=== PATIENT | male | born 1965 | race American Indian/Alaskan Native ===

== ENCOUNTER 2021-05-15 17:12 | Inpatient (IN) | payer SELFPAY ==
--- NOTE | 2021-05-15 21:47 | Event Note ---
ED Screening Note Date of service: 05/15/21 Time: 21:45 ED Screening Note: 56-year-old black male with a past medical history of CHF and CAD status post CABG presents to the emergency department for evaluation of 2-week history of worsening shortness of breath and bilateral lower extremity swelling. He states that he is supposed to be on several medications but has not taken them in "a while" This initial assessment/diagnostic orders/clinical plan/treatment(s) is/are subject to change based on patients health status, clinical progression and re- assessment by fellow clinical providers in the ED. Further treatment and workup at subsequent clinical providers discretion. Patient/guardian urged not to elope from the ED as their condition may be serious if not clinically assessed and managed. Initial orders include: CBC, CMP, BMP, troponin, EKG, and chest x-ray.
--- NOTE | 2021-05-15 22:21 | XRay Report ---
CHEST 2 VIEWS INDICATION / CLINICAL INFORMATION: sob. COMPARISON: 10/22/2010 FINDINGS: SUPPORT DEVICES: Prior sternotomy. HEART / MEDIASTINUM: No significant abnormality. LUNGS / PLEURA: Elevation of the lateral right hemidiaphragm with bandlike scarring/atelectasis of th e right lower lung zone. No definite acute airspace disease. Left lung is clear. No pneumothorax. ADDITIONAL FINDINGS: No significant additional findings. IMPRESSION: 1. Elevation of right hemidiaphragm with bandlike scarring/atelectasis of the right lung base. Left lung is clear. Signer Name: Jose Mantilla MD Signed: 05/15/2021 10:17 PM Workstation Name: [id number]
[2021-05-15 22:23] LABS: Hematocrit 52.1 % (35.5-45.6); Hemoglobin 16.6 gm/dl (11.8-15.2); Mean Corpuscular HGB Conc 32 % (32-34); Mean Corpuscular Volume 97 fl (84-94); Platelet Count 207 K/mm3 (140-440); Red Blood Count 5.39 M/mm3 (3.65-5.03); Red Cell Distribution Width 16.5 % (13.2-15.2)
--- NOTE | 2021-05-15 22:24 | Emergency Department Report ---
ED General Adult HPI - General Chief complaint: Dyspnea/Respdistress Stated complaint: SHORTNESS OF BREATH Time Seen by Provider: 05/15/21 22:12 Source: patient, RN notes reviewed Mode of arrival: Ambulatory Limitations: Physical Limitation - History of Present Illness Initial comments: This is a pleasant and cooperative 56-year-old gentleman, with a past medical history of possible hypertension, congestive heart failure. He does not know his ejection fraction. He is not compliant with medications. He last saw a relay tester 8 years ago. Presents to the ER today with a complaint of painless lower extremity swelling, orthopnea, unintentional lower extremity weight gain. Denies physical pain. Denies travel, surgery, immobilization, DVT/PE risk factors. -: week(s) Location: left, right, lower extremity Consistency: constant Improves with: rest Worsens with: movement - Related Data Allergies Allergy/AdvReac Type Severity Reaction Status Date / Time No Known Allergies Allergy Verified 05/15/21 22:47 ED Review of Systems ROS: Stated complaint: SHORTNESS OF BREATH Other details as noted in HPI Constitutional: malaise. denies: fever Eyes: denies: eye discharge ENT: congestion. denies: epistaxis Respiratory: orthopnea, shortness of breath, SOB with exertion, SOB at rest Cardiovascular: dyspnea on exertion, orthopnea, edema. denies: chest pain Gastrointestinal: denies: abdominal pain, hematemesis, melena, hematochezia Genitourinary: denies: dysuria Musculoskeletal: myalgia Neurological: weakness Hematological/Lymphatic: denies: easy bleeding ED Physical Exam - General Limitations: Physical Limitation General appearance: alert, anxious - Head Head exam: Present: atraumatic, normocephalic - Eye Eye exam: Present: normal appearance, EOMI. Absent: nystagmus - ENT ENT exam: Present: normal exam, normal orophraynx, mucous membranes moist, normal external ear exam - Neck Neck exam: Present: normal inspection, full ROM. Absent: tenderness, meningismus - Respiratory Respiratory exam: Present: respiratory distress. Absent: wheezes, rhonchi, stridor - Cardiovascular Cardiovascular Exam: Present: normal rhythm, tachycardia, normal heart sounds, JVD. Absent: bradycardia, irregular rhythm, systolic murmur, diastolic murmur, rubs, gallop - GI/Abdominal GI/Abdominal exam: Present: soft. Absent: distended, tenderness, guarding, rebound, rigid, pulsatile mass - Rectal Rectal exam: Present: deferred - Extremities Exam Extremities exam: Present: normal inspection, full ROM, pedal edema (3+ edema in the bilateral lower extremity), other (2+ pulses noted in the bilateral upper and lower extremities. There is no palpable cord. negative Homans sign. Muscular compartments are soft. The pelvis is stable.). Absent: calf tenderness - Back Exam Back exam: Present: normal inspection. Absent: tenderness, CVA tenderness (R), paraspinal tenderness, vertebral tenderness - Neurological Exam Neurological exam: Present: alert, oriented X3, other (No facial droop. Tongue midline. Extraocular movements intact bilaterally. Facial sensation intact to light touch in V1, V2, V3 distribution bilaterally. 5 and a 5 strength in 4 extremities. Sensation intact to light touch in 4 extremities.). Absent: motor sensory deficit - Psychiatric Psychiatric exam: Present: anxious - Skin Skin exam: Present: warm, dry, intact, normal color. Absent: rash ED Course Vital Signs 05/15/21 19:24 Temperature 98.2 F Pulse Rate 118 H Respiratory 18 Rate Blood Pressure 157/95 O2 Sat by Pulse 99 Oximetry - Reevaluation(s) Reevaluation #1: 05/15/21 23:30 Differential diagnosis, including but not limited to: Congestive heart failure, pneumonia Assessment and plan: 56-year-old gentleman, with lower extremity edema, orthopnea, JVD, unintentional weight gain, suspicious for decompensated congestive heart failure. He denies DVT/PE risk factors and I find to be low risk by Wells criteria for pulmonary embolism and DVT. Laboratory studies including elevated proBNP are reviewed and appreciated. Aspirin and Lasix ordered. Have recommended admission to the medical service. Patient is agreeable to this plan of care. Lower extremity DVT study ordered. Hospital physician, Dr. Orly Weir to admit to IMS We will defer to inpatient team to follow-up on DVT study, but as per verbal report from technologist, DVT studies preliminarily negative Medical decision makin-year-old gentleman with decompensated congestive heart failure, requires admission to the medical service for medical optimization. Patient is agreeable to this plan of care. ED Medical Decision Making - Lab Data Result diagrams: 05/15/21 21:55 05/15/21 21:55 Vital Signs 05/15/21 19:24 Temperature 98.2 F Pulse Rate 118 H Respiratory 18 Rate Blood Pressure 157/95 O2 Sat by Pulse 99 Oximetry Lab Results 05/15/21 05/15/21 05/15/21 Range/Units 21:55 21:55 21:55 WBC 6.2 (4.5-11.0) K/mm3 RBC 5.39 H (3.65-5.03) M/mm3 Hgb 16.6 H (11.8-15.2) gm/dl Hct 52.1 H (35.5-45.6) % MCV 97 H (84-94) fl MCH 31 (28-32) pg MCHC 32 (32-34) % RDW 16.5 H (13.2-15.2) % Plt Count 207 (140-440) K/mm3 Lymph % (Auto) Gym Teacher [place] % (Auto) Gym Teacher Eos % (Auto) Gym Teacher Baso % (Auto) Gym Teacher Lymph # (Auto) Gym Teacher [place] # (Auto) Gym Teacher Eos # (Auto) Gym Teacher Baso # (Auto) Gym Teacher Seg Neutrophils % Gym Teacher Seg Neutrophils # Gym Teacher Sodium 142 (137-145) mmol/L Potassium 4.0 (3.6-5.0) mmol/L Chloride 103.7 (98-107) mmol/L Carbon Dioxide 27 (22-30) mmol/L Anion Gap 15 mmol/L BUN 11 (9-20) mg/dL Creatinine 1.0 (0.8-1.3) mg/dL Estimated GFR > 60 ml/min BUN/Creatinine Ratio 11 % Glucose 263 H (75-100) mg/dL Calcium 9.1 (8.4-10.2) mg/dL Total Bilirubin 1.30 H (0.1-1.2) mg/dL AST 19 (5-40) units/L ALT 21 (7-56) units/L Alkaline Phosphatase 121 (35-129) units/L Troponin T 0.023 (0.00-0.029) ng/mL NT-Pro-B Natriuret Pep 4582 H (0-900) pg/mL Total Protein 7.1 (6.3-8.2) g/dL Albumin 3.6 L (3.9-5) g/dL Albumin/Globulin Ratio 1.0 % - EKG Data -: EKG Interpreted by Mi EKG shows normal: sinus rhythm Rate: tachycardia - EKG Data When compared to previous EKG there are: previous EKG unavailable 05/15/21 23:30 The EKG is interpreted at 21: 56 Sinus rhythm, tachycardia, rate 105 bpm. Normal axis, normal P wave axis, Q waves noted in the inferior leads, there is atrial enlargement, and left ventricular hypertrophy. This is an abnormal EKG. This is not a STEMI. There is no prior for comparison - Radiology Data Radiology results: pending, report reviewed, image reviewed CHEST 2 VIEWS INDICATION / CLINICAL INFORMATION: sob. COMPARISON: 10/22/2010 FINDINGS: SUPPORT DEVICES: Prior sternotomy. HEART / MEDIASTINUM: No significant abnormality. LUNGS / PLEURA: Elevation of the lateral right hemidiaphragm with bandlike scarring/atelectasis of the right lower lung zone. No definite acute airspace disease. Left lung is clear. No pneumothorax. ADDITIONAL FINDINGS: No significant additional findings. IMPRESSION: 1. Elevation of right hemidiaphragm with bandlike scarring/atelectasis of the right lung base. Left lung is clear. Signer Name: Jose Mantilla MD Signed: 05/15/2021 9:17 PM Workstation Name: [id number] Critical care attestation.: If time is entered above; I have spent that time in minutes in the direct care of this critically ill patient, excluding procedure time. ED Disposition Clinical Impression: Acute congestive heart failure, Lower extremity edema Disposition: ADMITTED INPATIENT Is pt being admited?: Yes Does the pt Need Aspirin: No Condition: Good Referrals: SOLE BEAVER MD [Primary Care Provider] - 3-5 Days
[2021-05-15 22:28] LABS: Alanine Aminotransferase 21 units/L (7-56); Albumin 3.6 g/dL (3.9-5); BUN/Creatinine Ratio 11; Blood Urea Nitrogen 11 mg/dL (9-20); Calcium 9.1 mg/dL (8.4-10.2); Hemolysis Index 8
[2021-05-15] MEDS ORDERED: FUROSEMIDE 40 MG/4 ML INJ IV ONE (22:42)
[2021-05-15] MEDS ORDERED: ASPIRIN 81 MG TAB CHEW PO ONE (22:42)
[2021-05-16] MEDS ORDERED: MORPHINE 4 MG/1 ML INJ IV PRN (00:11)
[2021-05-16] MEDS ORDERED: MORPHINE 2 MG/1 ML INJ IV PRN (00:11)
[2021-05-16] MEDS ORDERED: ONDANSETRON 4 MG/2 ML INJ IV PRN (00:11)
[2021-05-16] MEDS ORDERED: MAGNESIUM HYDROXIDE (MOM) ORAL LIQD UDC PO PRN (00:11)
[2021-05-16] MEDS ORDERED: ACETAMINOPHEN 325 MG TAB PO PRN (00:11)
--- NOTE | 2021-05-16 00:16 | Vascular Lab Report ---
DUPLEX DOPPLER LOWER EXTREMITY VEINS, BILATERAL INDICATION / CLINICAL INFORMATION: b/l lower ext swelling. TECHNIQUE: Duplex doppler imaging was performed through the veins of both lower extremities using breanna ous compression and other maneuvers. COMPARISON: None available. FINDINGS: RIGHT COMMON FEMORAL VEIN: Negative. RIGHT FEMORAL VEIN: Negative. RIGHT POPLITEAL VEIN: Negative. RIGHT CALF VEINS: Negative. LEFT COMMON FEMORAL VEIN: Negative. LEFT FEMORAL VEIN: Negative. LEFT POPLITEAL VEIN: Negative. LEFT CALF VEINS: Negative. ADDITIONAL FINDINGS: None. IMPRESSION: 1. No sonographic evidence for DVT in either lower extremity. Signer Name: Imtiaz Delgado II, MD Signed: 05/16/2021 12:12 AM Workstation Name: [id number]
--- NOTE | 2021-05-16 00:33 | History and Physical Report ---
History of Present Illness Date of examination: 05/16/21 Date of admission: 05/16/2021 Chief complaint: Shortness of Breath Lower extremity Swelling History of present illness: 56-year-old -[place]ian male with known history of hypertension and CHF presenting to the emergency room today complaining of shortness of breath and progressive swelling of his lower extremities over the past few days. Patient denies any chest pain, no headache or dizziness and no diaphoresis. He denies not being compliant with his medications lately because he ran out of of refills. He has not followed up with any anti air warfare operations officer in about 8 years. He denies any lower extremity pain. No recent travel or sick contacts. Work-up in the emergency room today, lab was significant for BNP of 4582, blood glucose of 263, hemoglobin of 16.6 and hematocrit of 52.1. Ultrasound of the lower extremities were negative for DVT. Past History Past Medical History: heart failure Past Surgical History: No surgical history Social history: no significant social history Family history: no significant family history Medications and Allergies Allergies Allergy/AdvReac Type Severity Reaction Status Date / Time No Known Allergies Allergy Verified 05/15/21 22:47 Home Medications Medication Instructions Recorded Confirmed Last Taken Type No Known Home Medications [No 05/16/21 05/16/21 Unknown History Reported Home Medications] Active Meds: Active Medications Acetaminophen (Acetaminophen 325 Mg Tab) 650 mg PO Q4H PRN PRN Reason: Pain MILD(1-3)/Fever >100.5/REBOLLEDO Furosemide (Furosemide 40 Mg/4 Ml Inj) 40 mg IV BID@0600,1800 [facility] Heparin Sodium (Porcine) (Heparin 5,000 Unit/1 Ml Vial) 5,000 unit SUB-Q Q8HR [facility] Magnesium Hydroxide (Magnesium Hydroxide (Mom) Oral Liqd Udc) 30 ml PO Q4H PRN PRN Reason: Constipation Morphine Sulfate (Morphine 2 Mg/1 Ml Inj) 2 mg IV Q4H PRN PRN Reason: Pain, Moderate (4-6) Morphine Sulfate (Morphine 4 Mg/1 Ml Inj) 4 mg IV Q4H PRN PRN Reason: Pain , Severe (7-10) Ondansetron HCl (Ondansetron 4 Mg/2 Ml Inj) 4 mg IV Q8H PRN PRN Reason: Nausea And Vomiting Sodium Chloride (Sodium Chloride 0.9% 10 Ml Flush Syringe) 10 ml IV BID ULISSES Sodium Chloride (Sodium Chloride 0.9% 10 Ml Flush Syringe) 10 ml IV PRN PRN PRN Reason: LINE FLUSH Review of Systems Constitutional: no fever, no chills Ears, nose, mouth and throat: no nasal congestion, no sore throat Cardiovascular: no chest pain, no orthopnea, no palpitations Respiratory: no cough, no shortness of breath Gastrointestinal: no abdominal pain, no nausea, no vomiting, no diarrhea Musculoskeletal: no neck pain, no low back pain Integumentary: no rash, no pruritis Neurological: no headaches, no confusion Psychiatric: no anxiety, no depression Endocrine: no polyphagia, no polydipsia, no polyuria, no nocturia Exam - Constitutional Vitals: Temp Pulse Resp BP Pulse Ox 98.2 F 118 H 18 157/95 99 05/15/21 19:24 05/15/21 19:24 05/15/21 19:24 05/15/21 19:24 05/15/21 19:24 General appearance: Present: no acute distress, well-nourished - EENT Eyes: Present: PERRL, EOM intact. Absent: scleral icterus ENT: hearing intact, clear oral mucosa, dentition normal - Neck Neck: Present: supple, normal ROM - Respiratory Respiratory effort: normal Respiratory: bilateral: other (Few Crackles in bases) - Cardiovascular Rhythm: regular Heart Sounds: Present: S1 & S2, systolic murmur (Soft systolic murmur). Absent: gallop - Extremities Extremities: no ischemia, pulses intact, pulses symmetrical, normal temperature, Full ROM Extremity abnormal: edema (2+ bilateral lower extremity edema) Peripheral Pulses: within normal limits - Abdominal General gastrointestinal: Present: soft, non-tender, non-distended, normal bowel sounds. Absent: mass - Integumentary Integumentary: Present: clear, warm, dry, normal turgor. Absent: rash - Musculoskeletal Musculoskeletal: strength equal bilaterally - Psychiatric Psychiatric: appropriate mood/affect, intact judgment & insight, memory intact, cooperative - Neurologic Neurologic: CNII-XII intact, no focal deficits, moves all extremities HEART Score - HEART Score Troponin: Troponin T 0.023 ng/mL (0.00-0.029) 05/15/21 21:55 Results - Labs CBC & Chem 7: 05/15/21 21:55 05/15/21 21:55 Labs: Abnormal lab results 05/15/21 05/15/21 05/15/21 Range/Units 21:55 21:55 21:55 RBC 5.39 H (3.65-5.03) M/mm3 Hgb 16.6 H (11.8-15.2) gm/dl Hct 52.1 H (35.5-45.6) % MCV 97 H (84-94) fl RDW 16.5 H (13.2-15.2) % Glucose 263 H (75-100) mg/dL Total Bilirubin 1.30 H (0.1-1.2) mg/dL NT-Pro-B Natriuret Pep 4582 H (0-900) pg/mL Albumin 3.6 L (3.9-5) g/dL Assessment and Plan - Patient Problems (1) Acute congestive heart failure Current Visit: Yes Status: Acute Plan to address problem: Patient admitted and placed on diuretics. We will monitor inputs and outputs and also monitor daily weights. Patient scheduled for echocardiogram. Compliance with medications encouraged. Consult placed to cardiology for evaluation and recommendations. (2) Lower extremity edema Current Visit: Yes Status: Acute Plan to address problem: Possibly secondary to CHF exacerbation. Ultrasound Doppler was negative for DVT. We will continue on diuretics. (3) DVT prophylaxis Current Visit: Yes Status: Acute Plan to address problem: Patient placed on subcutaneous heparin. (4) Full code status Current Visit: Yes Status: Acute Plan to address problem: Patient is full code.
[2021-05-16] MEDS: HEPARIN 5,000 UNIT/1 ML VIAL SUB-Q SCH ×3 (06:07→23:00)
[2021-05-16] MEDS: FUROSEMIDE 40 MG/4 ML INJ IV SCH ×2 (06:07→18:20)
--- NOTE | 2021-05-16 13:25 | Consultation ---
History of Present Illness Consult date: 05/16/21 Consult reason: congestive heart failure History of present illness: The patient is a 56-year-old man with a history of coronary artery disease. He states that he underwent coronary artery bypass surgery 8 years ago at [facility]. Following that, he has not seen a doctor or action finisher in 8 years. He has been noncompliant with any prescribed medications. He presents now with 2 weeks of increasing shortness of breath and lower extremity edema. He also reports orthopnea. In the hospital, he has 2-3+ bilateral lower extremity edema. His chest x-ray showed moderate to severe cardiomegaly with a moderate sized right pleural effusion. He is admitted for management of decompensated congestive heart failure. EKG was a mild sinus tachycardia, Q waves of a possible old inferior myocardial infarction, left ventricular hypertrophy and poor R wave progression. There are no acute ST or T wave changes. Past History Past Medical History: CAD, hypertension Past Surgical History: No surgical history, CABG Social history: no significant social history Family history: no significant family history Medications and Allergies Allergies Allergy/AdvReac Type Severity Reaction Status Date / Time No Known Allergies Allergy Verified 05/15/21 22:47 Home Medications Medication Instructions Recorded Confirmed Last Taken Type No Known Home Medications [No 05/16/21 05/16/21 Unknown History Reported Home Medications] Active Meds: Active Medications Acetaminophen (Acetaminophen 325 Mg Tab) 650 mg PO Q4H PRN PRN Reason: Pain MILD(1-3)/Fever >100.5/REBOLLEDO Furosemide (Furosemide 40 Mg/4 Ml Inj) 40 mg IV BID@0600,1800 [facility] Last Admin: 05/16/21 06:07 Dose: 40 mg Heparin Sodium (Porcine) (Heparin 5,000 Unit/1 Ml Vial) 5,000 unit SUB-Q Q8HR [facility] Last Admin: 05/16/21 06:07 Dose: 5,000 unit Magnesium Hydroxide (Magnesium Hydroxide (Mom) Oral Liqd Udc) 30 ml PO Q4H PRN PRN Reason: Constipation Morphine Sulfate (Morphine 2 Mg/1 Ml Inj) 2 mg IV Q4H PRN PRN Reason: Pain, Moderate (4-6) Morphine Sulfate (Morphine 4 Mg/1 Ml Inj) 4 mg IV Q4H PRN PRN Reason: Pain , Severe (7-10) Ondansetron HCl (Ondansetron 4 Mg/2 Ml Inj) 4 mg IV Q8H PRN PRN Reason: Nausea And Vomiting Sodium Chloride (Sodium Chloride 0.9% 10 Ml Flush Syringe) 10 ml IV BID ULISSES Last Admin: 05/16/21 10:12 Dose: 10 ml Sodium Chloride (Sodium Chloride 0.9% 10 Ml Flush Syringe) 10 ml IV PRN PRN PRN Reason: LINE FLUSH Review of Systems Cardiovascular: orthopnea, edema, shortness of breath, no chest pain, no palpitations, no rapid/irregular heart beat, no syncope, no lightheadedness Physical Examination Vital Signs Temp Pulse Resp BP Pulse Ox 98.2 F 118 H 18 157/95 99 05/15/21 19:24 05/15/21 19:24 05/15/21 19:24 05/15/21 19:24 05/15/21 19:24 General appearance: mild distress HEENT: Positive: PERRL Neck: Positive: neck supple Cardiac: Positive: Reg Rate and Rhythm Lungs: Positive: Decreased Breath Sounds Neuro: Positive: Grossly Intact Abdomen: Positive: Soft Male genitourinary: Positive: deferred Skin: Positive: Clear Extremities: Present: +2 Edema Results 05/15/21 21:55 05/15/21 21:55 Cardiac Enzymes 05/15/21 Range/Units 21:55 AST 19 (5-40) units/L CBC 05/15/21 Range/Units 21:55 WBC 6.2 (4.5-11.0) K/mm3 RBC 5.39 H (3.65-5.03) M/mm3 Hgb 16.6 H (11.8-15.2) gm/dl Hct 52.1 H (35.5-45.6) % Plt Count 207 (140-440) K/mm3 Lymph # (Auto) [employer] Sergeant [place] # (Auto) [employer] Sergeant Eos # (Auto) [employer] Sergeant [place] # (Auto) [employer] Sergeant Comprehensive Metabolic Panel 05/15/21 Range/Units 21:55 Sodium 142 (137-145) mmol/L Potassium 4.0 (3.6-5.0) mmol/L Chloride 103.7 (98-107) mmol/L Carbon Dioxide 27 (22-30) mmol/L BUN 11 (9-20) mg/dL Creatinine 1.0 (0.8-1.3) mg/dL Glucose 263 H (75-100) mg/dL Calcium 9.1 (8.4-10.2) mg/dL AST 19 (5-40) units/L ALT 21 (7-56) units/L Alkaline Phosphatase 121 (35-129) units/L Total Protein 7.1 (6.3-8.2) g/dL Albumin 3.6 L (3.9-5) g/dL EKG interpretations - Telemetry EKG Rhythm: Sinus Tachycardia Assessment and Plan - Patient Problems (1) Acute congestive heart failure Current Visit: Yes Status: Acute Plan to address problem: Patient with a history of coronary artery disease status post remote coronary artery bypass, noncompliant with medical therapy, presents with 2 weeks of progressive fluid overload, presentation consistent with acute congestive heart failure. We will treat aggressively with diuretic therapy, blood pressure management. We will order an echocardiogram for left ventricular function assessment. Further cardiac evaluation and management will depend on clinical course.
--- NOTE | 2021-05-16 14:28 | Electrocardiograph Report ---
[facility] [place] Test Date: 2021-05-15 Test Time: 21:56:37 Pat Name: JARRETT MEZA Department: Room: A478 1 Gender: M Electrical Drafter: NICOLE : 1965 Requested By: LEANA MATUTE Order Number: [id number] Reading MD: Noemy Henderson Measurements Intervals [place] Rate: 105 P: 24 LA: 160 QRS: 30 QRSD: 94 T: -90 QT: 342 QTc: 452 Interpretive Statements Sinus tachycardia Inferior infarct, age indeterminate Nonspecific T abnormalities, lateral leads No previous ECG available for comparison Electronically Signed On 05-16-2021 14:28:00 EDT by Noemy Henderson
--- NOTE | 2021-05-16 16:41 | Event Note ---
Date: 05/16/21 Patient seen and examined This is the second visit after midnight Vitals noted and stable Patient denies any chest pain but complains of exertional shortness of breath 56-year-old -[place] male with a history of coronary artery disease status post bypass presented to the hospital with worsening shortness of breath and chest pain. Continue diuresis IV, ordered 2D echo, consulted cardiology Monitor ins O's, daily weight, monitor BP Continue current management and plan -It took me about 28 minutes to reevaluate and reasses this patient, discussed with RN/CM, review medical documents, lab results, imaging, medication list and placing order.
[2021-05-17 05:32] LABS: Basophils % (Auto) 0.4 % (0.0-1.8); Eosinophils % (Auto) 0.8 % (0.0-4.3); Hematocrit 49.7 % (35.5-45.6); Hemoglobin 16.2 gm/dl (11.8-15.2); Lymphocytes # (Auto) 3.2 K/mm3 (1.2-5.4); Lymphocytes % (Auto) 54.5 % (13.4-35.0); Mean Corpuscular HGB Conc 33 % (32-34); Mean Corpuscular Volume 95 fl (84-94); Monocytes # (Auto) 0.4 K/mm3 (0.0-0.8); Monocytes % (Auto) 6.9 % (0.0-7.3); Platelet Count 197 K/mm3 (140-440); Red Blood Count 5.26 M/mm3 (3.65-5.03); Red Cell Distribution Width 16.2 % (13.2-15.2)
[2021-05-17 05:50] LABS: BUN/Creatinine Ratio 12; Blood Urea Nitrogen 12 mg/dL (9-20); Calcium 8.7 mg/dL (8.4-10.2); Hemolysis Index 218
[2021-05-17] MEDS: HEPARIN 5,000 UNIT/1 ML VIAL SUB-Q SCH ×3 (07:00→21:49)
[2021-05-17] MEDS: FUROSEMIDE 40 MG/4 ML INJ IV SCH ×2 (07:00→17:04)
--- NOTE | 2021-05-17 14:04 | Progress Note ---
Assessment and Plan - Patient Problems (1) Acute congestive heart failure Current Visit: Yes Status: Acute Plan to address problem: Patient with a history of coronary artery disease status post remote coronary artery bypass, noncompliant with medical therapy, presents with 2 weeks of progressive fluid overload, presentation consistent with acute congestive heart failure. He feels better following initial diuretic therapy. Echocardiogram shows a residual, severe cardiomyopathy with left ventricular ejection fraction 20 to 25%. We will continue guideline directed medical therapy, and order a predischarge Lexiscan thallium stress test for further assessment of coronary disease. Subjective Date of service: 05/17/21 Principal diagnosis: Congestive heart failure Interval history: The patient looks and feels better today, no chest pain, shortness of breath has improved following diuretic therapy. Echocardiogram shows a severe ischemic cardiomyopathy with left ventricular ejection fraction 20 to 25%. Objective Vital Signs Temp Pulse Resp BP BP Pulse Ox 05/17/21 11:00 98 F 87 18 143/93 97 05/17/21 07:39 97.2 F L 78 18 143/95 98 05/17/21 03:05 98.0 F 97 H 16 156/102 96 05/16/21 23:53 18 98 05/16/21 23:04 98.2 F 99 H 16 141/100 98 05/16/21 22:00 18 98 05/16/21 19:11 97.6 F 103 H 16 138/97 99 05/16/21 17:11 97.7 F 78 18 149/86 96 05/16/21 14:55 97.8 F 92 H 24 148/94 85 - Physical Examination General: No Apparent Distress HEENT: Positive: PERRL Neck: Positive: neck supple Cardiac: Positive: Reg Rate and Rhythm Lungs: Positive: Decreased Breath Sounds Neuro: Positive: Grossly Intact Abdomen: Positive: Soft Skin: Positive: Clear Extremities: Present: +2 Edema - Labs and Meds CBC 05/17/21 Range/Units 05:10 WBC 5.9 (4.5-11.0) K/mm3 RBC 5.26 H (3.65-5.03) M/mm3 Hgb 16.2 H (11.8-15.2) gm/dl Hct 49.7 H (35.5-45.6) % Plt Count 197 (140-440) K/mm3 Lymph # (Auto) 3.2 (1.2-5.4) K/mm3 [place] # (Auto) 0.4 (0.0-0.8) K/mm3 Eos # (Auto) 0.0 (0.0-0.4) K/mm3 Baso # (Auto) 0.0 (0.0-0.1) K/mm3 Comprehensive Metabolic Panel 05/17/21 Range/Units 05:06 Sodium 138 (137-145) mmol/L Potassium 4.6 (3.6-5.0) mmol/L Chloride 99.1 (98-107) mmol/L Carbon Dioxide 26 (22-30) mmol/L BUN 12 (9-20) mg/dL Creatinine 1.0 (0.8-1.3) mg/dL Glucose 267 H (75-100) mg/dL Calcium 8.7 (8.4-10.2) mg/dL
[2021-05-17] MEDS: SPIRONOLACTONE 25 MG TAB PO SCH (17:04)
[2021-05-17] MEDS: LISINOPRIL 10 MG TAB PO SCH (17:05)
[2021-05-17] MEDS: ASPIRIN EC 81 MG TAB PO SCH (17:05)
[2021-05-17] MEDS: carvediloL 6.25 MG TAB PO SCH ×2 (17:06→21:49)
--- NOTE | 2021-05-17 18:07 | Progress Note ---
Assessment and Plan -- Acute systolic congestive heart failure Patient admitted and placed on diuretics. We will monitor inputs and outputs and also monitor daily weights. 2d Echocardiogram shows a residual, severe cardiomyopathy with left ventricular ejection fraction 20 to 25%. Compliance with medications encouraged. Consult placed to cardiology for evaluation and recommendations. Plan for stress test tomorrow --Coronary artery disease, continue aspirin and statin Cardiology consulted and plan for stress test tomorrow --Hypertension, monitor BP, initiate antihypertensive --Hypomagnesemia, replete --Hyperglycemia likely new onset diabetes Continue SSI for now --Elevated bilirubin, likely due to hepatic congestion -- DVT prophylaxis Patient placed on subcutaneous heparin. -- Full code status Subjective Date of service: 05/17/21 Principal diagnosis: Congestive heart failure Interval history: Patient seen and examined. Medical records and medication list reviewed. No acute event overnight noted by the RN. Patient denies any chest pain , improved difficulty breathing. Patient is tolerating diet. Discussed plan of care at bedside with patient. Objective - Exam Narrative Exam: GENERAL: well-developed and well-nourished lying on bed appeared to be in no discomfort. HEENT: Normocephalic. Atraumatic. No conjunctival congestion or icterus. Patient has moist mucous membranes. NECK: Supple. Trachea midline. CHEST/LUNGS: Positive bilateral crackles auscultated HEART/CARDIOVASCULAR: Regular in rate and rhythm. S1 and S2 positive. ABDOMEN: Abdomen is soft, nontender. Patient has normal bowel sounds. SKIN: There is no rash. Warm and dry. NEURO: No focal motor deficit. Follows command. MUSCULOSKELETAL: No joint effusion or tenderness. EXTRIMITY: No edema, no cyanosis or clubbing. PSYCH: Cooperative. - Constitutional Vitals: Vital Signs - 12hr 05/17/21 05/17/21 05/17/21 07:39 11:00 16:27 Temperature 97.2 F L 98 F 97.7 F Pulse Rate 78 87 91 H Respiratory 18 18 16 Rate Blood Pressure 143/95 Blood Pressure 143/93 122/74 [Left] O2 Sat by Pulse 98 97 99 Oximetry 05/17/21 05/17/21 05/17/21 17:04 17:05 17:06 Temperature Pulse Rate 99 H 99 H Respiratory Rate Blood Pressure 122/74 Blood Pressure [Left] O2 Sat by Pulse Oximetry - Labs CBC & Chem 7: 05/17/21 05:10 05/18/21 05:45 Labs: Abnormal lab results 05/17/21 05/17/21 05/17/21 Range/Units 05:06 05:06 05:10 RBC 5.26 H (3.65-5.03) M/mm3 Hgb 16.2 H (11.8-15.2) gm/dl Hct 49.7 H (35.5-45.6) % MCV 95 H (84-94) fl RDW 16.2 H (13.2-15.2) % Lymph % (Auto) 54.5 H (13.4-35.0) % Seg Neutrophils % 37.4 L (40.0-70.0) % Glucose 267 H (75-100) mg/dL Magnesium 1.40 L (1.7-2.3) mg/dL HEART Score - HEART Score Troponin: Troponin T 0.023 ng/mL (0.00-0.029) 05/15/21 21:55
[2021-05-18] MEDS ORDERED: MAGNESIUM SULFATE 2 GM/50 ML BAG IV ONE (01:47)
[2021-05-18] MEDS: HEPARIN 5,000 UNIT/1 ML VIAL SUB-Q SCH ×2 (05:55→14:12)
[2021-05-18] MEDS ORDERED: REGADENOSON 0.4 MG/5 ML INJ IV ONE (09:12)
[2021-05-18 09:57] LABS: BUN/Creatinine Ratio 12; Blood Urea Nitrogen 15 mg/dL (9-20); Calcium 9.5 mg/dL (8.4-10.2); Hemolysis Index 15
[2021-05-18] MEDS: SPIRONOLACTONE 25 MG TAB PO SCH (11:07)
[2021-05-18] MEDS: ASPIRIN EC 81 MG TAB PO SCH (11:07)
[2021-05-18] MEDS: carvediloL 6.25 MG TAB PO SCH (11:07)
[2021-05-18] MEDS: LISINOPRIL 10 MG TAB PO SCH (11:07)
[2021-05-18] MEDS: FUROSEMIDE 40 MG/4 ML INJ IV SCH (11:07)
[2021-05-18 12:37] VITALS: BP 132/92
--- NOTE | 2021-05-18 13:20 | Nuclear Medicine Report ---
APPROVED REPORT Exam: Nuclear Stress Test Indication: [facility] Ht: 5 ft 5 in Wt: 174 lbs BSA: 1.86 m2 HR: 96 bpmBP: 139/101 mmHgBMI: 28.95 Rhythm: NSR Medical History Medical History: CAD non obstructive Stress Test Details Stress Test: Pharmacologic stress testing performed using 0.4 mg of regadenoson per 5 mL given IV over 10 seconds. HR Resting HR: 96 bpm Max HR Achieved: 98 bpm Max Heart Rate (APMHR): 165 bpm Target HR (85% APMHR): 140 bpm % of APMHR: 59 Recovery HR: 90 bpm HR response to stress: Normal HR response to stress BP Resting BP: 139/101 mmHg Max BP: 150/94 mmHg Recovery BP: 136/88 mmHg BP response to stress: Normal blood pressure response to stress. ECG Resting ECG: Sinus Rhythm Stress ECG: Sinus Rhythm ST Change: None Arrhythmia: None Recovery ECG: Sinus Rhythm Recovery ST Change: None Recovery Arrhythmia: None, APC, VPC Clinical Reason for Termination: Completed protocol Stress Symptoms: None Stress ECG Conclusion No chest pain and no ST changes of ischemia with pharmacologic stress. Myocardial perfusion images are pending. NM EXAM: Myocardial Perfusion REST/STRESS Imaging Protocol: Rest Tc-99m/Stress Tc-99m 1 day Resting Data Rest SPECT myocardial perfusion imaging was performed in supine position 45 minutes following the intravenous injection of 10 mCi of Tc-99m Myoview. Time of rest injection: 729 Date: 05/18/2021 Pharmacologic Stress Pharmacologic stress test was performed by injecting Regadenoson 0.4 mg IV push followed by the intravenous injection of 28 mCi of Tc-99m Tetrofosmin. Time of stress injection: 10:09:04 Date: 05/18/2021 Study Data TID = 1.10. The left ventricle is moderately dilated. There is a moderate sized, fixed inferior defect, with no reversibility on the resting study. Wall Motion There is moderately severe left ventricular systolic dysfunction, ejection fraction calculated at 31% by gated SPECT. Nuclear Conclusion ECG Findings: negative for ischemia Clinical Findings: negative for ischemia Nuclear Findings: negative for ischemia Left Ventricular Function: abnormal Risk Study: moderate Perfusion study demonstrates a severe dilated cardiomyopathy, ejection fraction 31%. There is a fixed inferior defect of old inferior myocardial infarction, with no reversible ischemia demonstrated. Clinical correlation is recommended. Conclusion No chest pain and no ST changes of ischemia with pharmacologic stress. Myocardial perfusion images are pending.
--- NOTE | 2021-05-18 13:22 | Event Note ---
Date: 05/18/21 Patient underwent a Lexiscan thallium stress test today. Study showed a dilated cardiomyopathy with a fixed inferior defect of an old inferior myocardial infarction, but no reversible ischemia. Patient is stable for cardiac discharge on current medical regimen of lisinopril, furosemide, carvedilol, aspirin, atorvastatin and spironolactone. Outpatient cardiac follow-up is recommended for 7 to 10 days.
--- NOTE | 2021-05-18 16:18 | Discharge Summary ---
Providers - Providers Date of Admission: 05/16/21 00:30 Date of discharge: 05/18/21 Attending physician: EDY ORTEGA 05/16/21 00:11 Consult to Physician [CONS] Routine Comment: Consulting Provider: BETSEY REDMOND Physician Instructions: Reason For Exam: CHF Exac Primary care physician: SOLE BEAVER Hospitalization Condition: Good Hospital course: 56-year-old -[place] male with known history of hypertension and coronary artery disease presenting to the emergency room complaining of shortness of breath and progressive swelling of his lower extremities over the past few days. Work-up in the emergency room: lab was significant for BNP of 4582, blood glucose of 263, hemoglobin of 16.6 and hematocrit of 52.1. Ultrasound of the lower extremities were negative for DVT. Patient was admitted to the hospital for further evaluation and management. Cardiology was consulted patient was aggressively diuresed, 2D echo showed EF of 20 to 25%. Patient also noted elevated blood glucose with A1c above 10, patient initiated on Metformin and sliding scale of insulin. Patient underwent a Lexiscan thallium stress test today. Study showed a dilated cardiomyopathy with a fixed inferior defect of an old inferior myocardial infarction, but no reversible ischemia. Per cardiology, patient is stable for cardiac discharge on current medical regimen of lisinopril, furosemide, carvedilol, aspirin, atorvastatin and spironolactone. Outpatient cardiac follow-up is recommended for 7 to 10 days. Patient was then discharged home in stable condition with outpatient follow-up. Discharge diagnosis: -- Acute systolic congestive heart failure Patient admitted and placed on diuretics. We will monitor inputs and outputs and also monitor daily weights. 2d Echocardiogram shows a residual, severe cardiomyopathy with left ventricular ejection fraction 20 to 25%. Compliance with medications encouraged. Consult placed to cardiology for evaluation and recommendations. s/p stress test today, cardiology recommended medical management and outpatient follow-up --Coronary artery disease, continue aspirin and statin --Hypertension, monitor BP, initiated antihypertensive --Hypomagnesemia, replete --Hyperglycemia with new onset diabetes, a1c ~10 Placed on Metformin and SSI --Elevated bilirubin, likely due to hepatic congestion Disposition: HOME / SELF CARE / HOMELESS Final Discharge Diagnosis (Prints w/discharge instructions): --Acute systolic CHF with EF 20 to 25%. --Coronary artery disease. --Hypertension, hyperlipidemia. --Hypomagnesemia. --Hyperglycemia with possible new onset diabetes mellitus type 2 Time spent for discharge: 34 minutes Core Measure Documentation - Palliative Care Palliative Care/ Comfort Measures: Not Applicable - Core Measures Any of the following diagnoses?: none Exam - Physical Exam Narrative exam: GENERAL: well-developed and well-nourished lying on bed appeared to be in no discomfort. HEENT: Normocephalic. Atraumatic. No conjunctival congestion or icterus. Patient has moist mucous membranes. NECK: Supple. Trachea midline. CHEST/LUNGS: Positive bilateral crackles auscultated HEART/CARDIOVASCULAR: Regular in rate and rhythm. S1 and S2 positive. ABDOMEN: Abdomen is soft, nontender. Patient has normal bowel sounds. SKIN: There is no rash. Warm and dry. NEURO: No focal motor deficit. Follows command. MUSCULOSKELETAL: No joint effusion or tenderness. EXTRIMITY: No edema, no cyanosis or clubbing. PSYCH: Cooperative. - Constitutional Vitals: Temp Pulse Resp BP Pulse Ox 97.3 F L 83 18 132/92 95 05/18/21 11:45 05/18/21 11:45 05/18/21 11:45 05/18/21 11:45 05/18/21 11:45 Plan Activity: advance as tolerated Weight Bearing Status: Weight Bear as Tolerated Diet: low fat, low salt Special Instructions: restrict fluid intake to (1.5L daily), record daily weights, record daily BP diary, record blood sugar diary Additional Instructions: Please be compliant with medications. Follow-up with Dr. Patel in 1 week. Check your blood glucose daily in the morning fasting and at bedtime Follow up with: SOLE BEAVER MD [Primary Care Provider] - 3-5 Days MARTI WEST MD [Staff Physician] - 7 Days Prescriptions: AtorvaSTATin [Lipitor] 40 mg PO QHS #60 tablet Spironolactone [Aldactone] 25 mg PO QDAY #60 tablet carvediloL [Coreg] 6.25 mg PO BID #120 tablet metFORMIN [Glucophage] 850 mg PO BIDDIAB #120 tablet Aspirin EC [Halfprin EC] 81 mg PO QDAY #60 tablet Furosemide [Lasix TAB] 40 mg PO QDAY #60 tablet lisinopriL [Zestril TAB] 10 mg PO QDAY #120 tablet Other Discharge Orders: Glucometer (Amb) Location: None Selected Glucometer supplies[Amb] Location: None Selected
[2021-05-18] MEDS ORDERED: metFORMIN 850 MG TAB PO SCH (17:00)
== END 2021-05-18 17:18 | disposition home or self-care (01) | DRG 291 ==
LOC: ED 17:12 → 4A 05-16 00:30
PROVIDERS: ADMIT Internal Medicine Geriatric Medicine; ATTEND Internal Medicine
DX: I11.0 Hypertensive heart disease with heart failure (principal); I50.21 Acute systolic (congestive) heart failure; I25.10 Atherosclerotic heart disease of native coronary artery without angina pectoris; I10 Essential (primary) hypertension; E83.42 Hypomagnesemia; E11.65 Type 2 diabetes mellitus with hyperglycemia; E78.5 Hyperlipidemia, unspecified; Z95.1 Presence of aortocoronary bypass graft
CPT/HCPCS: 36415; 71046; 78452; 80048; 80053; 83036; 83735; 83880; 84484; 85025; 93005; 93017; 93306; 93970; G0378; A9502; C8929; J1644; J1940; J2785; J3475